=== PATIENT | male | born 1995 | race Caucasian/White ===

== ENCOUNTER 2016-09-02 21:51 | Emergency (ER) | payer BC ==
[2016-09-02 22:01] VITALS: BP 136/95; PULSE 97; RESP 16; TEMP 99.1; O2SAT 96
--- NOTE | 2016-09-02 22:35 | EDPHY ---
H & P Stated Complaint: electrical shock Time Seen by Provider: 09/02/16 22:23 HPI/ROS: Chief complaint: Electrical shock HPI: 21-year-old male was working with some wiring of electronic score board at 110 volts when he got shocked in his left thumb. Patient denies any complaints or pain at this time. He is concerned about the possibility of a prolonged effect. This happened about 3 hours ago. Did not have any syncope. No chest pain or palpitations. Did not have any spasm or prolong exposure to electrical current. Is currently without complaint ROS: 10 point Review of Systems is negative except as noted in the HPI. Past medical history: Seizure disorder Medications: Lamotrigine Allergies: No known drug allergies Social history: Nonsmoker, no alcohol Gen: Awake, Alert, No Distress HEENT: Nose: no rhinorrhea Eyes: PERRLA, EOMI Mouth: Moist mucosa Neck: Supple, no JVD Heart: S1, S2 normal, no murmur Ext: no edema, non-tender, left thumb has no tenderness. Sensations intact. Normal capillary refill. Full range of motion without pain. There are no curry or evidence of an any electrical burn Skin: no rash Neuro: CN II-XII intact, Sensation grossly intact, Strength 5/5 in bilateral upper and lower extremities - Personal History Current Tetanus/Diphtheria Vaccine: Yes Current Tetanus Diphtheria and Acellular Pertussis (TDAP): Yes Tetanus Vaccine Date: 2010 - Medical/Surgical History Hx Asthma: No Hx Chronic Respiratory Disease: No Hx Diabetes: No Hx Cardiac Disease: No Hx Renal Disease: No Hx Cirrhosis: No Hx Alcoholism: No Hx HIV/AIDS: No Hx Splenectomy or Spleen Trauma: No Other PMH: seizure disorder - Social History Smoking Status: Never smoked Constitutional: Initial Vital Signs Temperature (C) 37.3 C 09/02/16 21:59 Heart Rate 97 09/02/16 21:59 Respiratory Rate 16 09/02/16 21:59 Blood Pressure 136/95 H 09/02/16 21:59 O2 Sat (%) 96 09/02/16 21:59 O2 Delivery Mode Room Air Allergies/Adverse Reactions: acetaminophen [From Tylenol] Allergy (Verified 09/02/16 21:58) decongestants Allergy (Uncoded 09/02/16 21:58) Home Medications: Medication Instructions Recorded lamoTRIgine [LamICTAL] 25 mg PO BID #25 tab 10/21/14 Departure - Departure Disposition: Home, Routine, Self-Care Clinical Impression: Electrical shock of hand Condition: Good Instructions: Normal Exam (ED) Additional Instructions: Follow up with your primary care physician in 3-4 days for any concerns. Referrals: SEGUNDO MARCELO [Primary Care Provider] - As per Instructions
== END 2016-09-02 22:56 | disposition home or self-care (01) ==
DX: T75.4XXA Electrocution, initial encounter (principal)

== ENCOUNTER 2018-05-04 15:42 | Emergency (ER) | payer BC ==
[2018-05-04] MEDS ORDERED: lamoTRIgine 100 MG TAB PO ONE (15:46)
--- NOTE | 2018-05-04 15:51 | EDPHY ---
H & P Time Seen by Provider: 05/04/18 15:42 HPI/ROS: CHIEF COMPLAINT: Seizure HISTORY OF PRESENT ILLNESS: Patient is a 23-year-old man with a history of epilepsy who comes to the emergency department after having a seizure on the bus today. He states that he only has seizures when he misses doses of Lamictal. He takes 150 at night and 125 in the morning. He states that last night he was drinking and he did take his evening dose but vomited. He did take his morning dose today. Paramedics state that he was postictal for approximately 5 min afterwards. He did not bite his tongue. He was not incontinent. He did not vomit. Severity: Severe Modifying factors: Resolved REVIEW OF SYSTEMS: Constitutional: denies: chills, fever, recent illness, recent injury EENTM: denies: blurred vision, double vision, nose congestion Respiratory: denies: cough, shortness of breath Cardiac: denies: chest pain, irregular heart rate, lightheadedness, palpitations Gastrointestinal/Abdominal: denies: abdominal pain, diarrhea, nausea, vomiting, blood streaked stools Genitourinary: denies: dysuria, frequency, hematuria, pain Musculoskeletal: denies: joint pain, muscle pain Skin: denies: lesions, rash, jaundice, bruising Neurological: denies: headache, numbness, paresthesia, tingling, dizziness, weakness Hematologic/Lymphatic: denies: blood clots, easy bleeding, easy bruising Immunologic/allergic: denies: HIV/AIDS, transplant 10 systems reviewed and negative except as noted EXAM: GENERAL: Well-appearing, well-nourished and in no acute distress. HEAD: Atraumatic, normocephalic. EYES: Pupils equal round and reactive to light, extraocular movements intact, sclera anicteric, conjunctiva are normal. ENT: TMs normal, nares patent, oropharynx clear without exudates. Does have a large amount of tobacco leaves in his mouth. Moist mucous membranes. NECK: Normal range of motion, supple without lymphadenopathy or JVD. LUNGS: Breath sounds clear to auscultation bilaterally and equal. No wheezes rales or rhonchi. HEART: Regular rate and rhythm without murmurs, rubs or gallops. ABDOMEN: Soft, nontender, normoactive bowel sounds. No guarding, no rebound. No masses appreciated. BACK: No CVA tenderness, no spinal tenderness, step-offs or deformities EXTREMITIES: Normal range of motion, no pitting or edema. No clubbing or cyanosis. NEUROLOGICAL: Cranial nerves II through XII grossly intact. Normal speech, normal gait. 5/5 strength, normal movement in all extremities, normal sensation , normal reflexes PSYCH: Normal mood, normal affect. SKIN: Warm, dry, normal turgor, no visible rashes or lesions. Source: Patient, EMS Exam Limitations: No limitations - Personal History Tetanus Vaccine Date: 2010 - Medical/Surgical History Hx Asthma: No Hx Chronic Respiratory Disease: No Hx Diabetes: No Hx Cardiac Disease: No Hx Renal Disease: No Hx Cirrhosis: No Hx Alcoholism: No Hx HIV/AIDS: No Hx Splenectomy or Spleen Trauma: No Other PMH: seizure disorder - Family History Significant Family History: No pertinent family hx - Social History Smoking Status: Never smoked Alcohol Use: Occasionally Drug Use: None Constitutional: Initial Vital Signs Heart Rate 101 H 05/04/18 16:08 Respiratory Rate 16 05/04/18 16:08 Blood Pressure 131/80 H 05/04/18 16:08 O2 Sat (%) 94 05/04/18 16:08 O2 Delivery Mode Room Air O2 (L/minute) 0 Allergies/Adverse Reactions: acetaminophen [From Tylenol] Allergy (Verified 05/04/18 16:32) decongestants Allergy (Uncoded 05/04/18 16:32) Home Medications: Medication Instructions Recorded lamoTRIgine [LamICTAL] 25 mg PO BID #25 tab 10/21/14 Medical Decision Making ED Course/Re-evaluation: The patient is now asymptomatic. I offered testing including lab work and imaging. The patient states that he has had multiple workups and does not wish to have further test done. We will give him his missed dose of Lamictal and observe. Parents are on the way. 5:30 p.m. the patient remains asymptomatic. He wishes to go home. He is eating. His mom is here in agrees to take him. They declined further workup or testing. Differential Diagnosis: Partial list of the Differential diagnosis considered include but were not limited to; seizure, epilepsy, alcohol withdrawal, medication noncompliance and although unlikely based on the history and physical exam, I also considered section, trauma, tumor, CVA. - Data Points Medications Given: Discontinued Medications Lamotrigine (Lamictal) 150 mg PO EDNOW ONE Stop: 05/04/18 15:47 Last Admin: 05/04/18 16:09 Dose: 150 mg Departure - Departure Disposition: Home, Routine, Self-Care Clinical Impression: Epilepsy Qualifiers: Epilepsy type: other generalized Intractability: not intractable Status epilepticus: without status epilepticus Qualified Code(s): G40.409 - Other generalized epilepsy and epileptic syndromes, not intractable, without status epilepticus Condition: Good Instructions: Epilepsy (ED) Referrals: SEGUNDO MARCELO [Primary Care Provider] - As per Instructions
[2018-05-04 17:49] VITALS: BP 117/84
== END 2018-05-04 17:48 | disposition home or self-care (01) ==
LOC: EDUNIT#
DX: G40.409 Other generalized epilepsy and epileptic syndromes, not intractable, without status epilepticus (principal)